=== PATIENT | male | born 1995 ===

== ENCOUNTER 2018-12-29 19:17 | Emergency (ER) | payer BC ==
--- NOTE | 2018-12-29 19:16 | EDPHY ---
H & P Time Seen by Provider: 12/29/18 19:17 Constitutional: Initial Vital Signs Heart Rate 104 H 12/29/18 19:21 Respiratory Rate 16 12/29/18 19:21 Blood Pressure 131/82 H 12/29/18 19:21 O2 Sat (%) 91 L 12/29/18 19:21 O2 Delivery Mode Room Air Allergies/Adverse Reactions: Unable to Assess Allergy (Unverified 12/29/18 19:27) Home Medications: Medication Instructions Recorded Unobtainable 12/29/18 Medical Decision Making ED Course/Re-evaluation: CHIEF COMPLAINT: Took LSD, agitated HISTORY OF PRESENT ILLNESS: The patient is a 23 y/o male arriving via EMS after he took LSD and became agitated. The patient's friends report took acid and subsequently started foaming at his mouth and screaming. Due to the patient's agitation, EMS was called and they gave the patient 300mg IM Ketamine. Since the Ketamine the patient has been somnolent. The patient's friends deny any coingestion. REVIEW OF SYSTEMS: Unable to obtain. PHYSICAL EXAM: HR, BP, O2 Sat, RR. Temp noted General Appearance: Somnolent, in 4-point restraints, well hydrated, appropriate, and non-toxic appearing. Head: Atraumatic without scalp tenderness or obvious injury Eyes: Pupils equal, round, reactive to light and accommodation, EOMI, no trauma , no injection. Ears: Clear bilaterally, no perforation, normal landmarks Nose: Atraumatic, no rhinorrhea, clear. Throat: There is no erythema or exudates, no lesions, normal tonsils, mucus membranes moist. Neck: Supple, 2+ carotid upstroke, nontender, no lymphadenopathy. Respiratory: No retractions, no distress, no wheezes, and no accessory muscle use. Lungs are clear to auscultation bilaterally. Cardiovascular: Regular rate and rhythm, no murmurs, rubs, or gallops. Bilateral carotid, radial, dorsalis pedis, and posterior tibial pulses intact. Good capillary refill all extremities. Gastrointestinal: Abdomen is soft, nontender, non-distended, no masses, no rebound, no guarding, no peritoneal signs. Musculoskeletal: Normal active ROM of all extremities, atraumatic. Neurological: Somnolent. The patient has normal DTRs and non-focal cranial nerves, motor, sensory, and cerebellar exam. Skin: No rashes, good turgor, no nodules on palpation. Past medical history: Denies Past surgical history: Denies Family history: Denies Social history: Single, lives in [place] DIAGNOSTICS/PROCEDURES/CRITICAL CARE TIME: Not indicated. DIFFERENTIAL DIAGNOSIS: The differential diagnosis for the patient's altered mental status included but was not limited to hypoglycemia, infectious process, electrolyte abnormality, head injury, neurologic process, anemia, cardiac process, and intoxicants. MEDICAL DECISION MAKING: The patient is a 23 y/o male arriving via EMS after he took LSD and became agitated. The patient's friends report took acid and subsequently started foaming at his mouth and screaming. EMS gave the patient 300mg IM Ketamine. Since the Ketamine the patient has been somnolent. We will continue to observe this patient until he becomes sober. 2050: Patient is now running around the room; 10mg IM Zyprexa administered. 2299: Patient care turned over to Dr. Villagomez at shift change. (Ant Jorgensen) 1:30 a.m.- Patient is now awake, alert, oriented. He denies any auditory or visual hallucinations. He is apologetic about his behavior. He is suitable for discharge at this time. [facility]. ( Viviana Villagomez) - Data Points Medications Given: Discontinued Medications Olanzapine (Zyprexa Injection) 10 mg IM EDNOW ONE Stop: 12/29/18 20:52 Last Admin: 12/29/18 20:57 Dose: 10 mg Departure - Departure Disposition: Home, Routine, Self-Care Clinical Impression: Lysergic acid diethylamide (LSD) abuse Condition: Good Instructions: Polysubstance Abuse (ED) Additional Instructions: 1. Please refrain from abusing drugs. 2. Return to the emergency department immediately for fever, vomiting, confusion , headache, abdominal pain or other worsening of condition. 3. Followup with your primary care physician within 72 hours for reevaluation. Referrals: [facility],. [Clinic] - As per Instructions Report Scribed for: Ant Jorgensen Report Scribed by: aCrrie Kline Date of Report: 12/29/18 Time of Report: 21:16
[2018-12-29] MEDS ORDERED: OLANZapine 10 MG/2 ML VIAL IM ONE (20:51)
[2018-12-29] MEDS ORDERED: OLANZapine 10 MG/2 ML VIAL ONE (20:52)
[2018-12-30 02:22] VITALS: BP 110/67
== END 2018-12-30 02:28 | disposition home or self-care (01) ==
DX: F16.129 Hallucinogen abuse with intoxication, unspecified (principal)